=== PATIENT | male | born 1970 | race Caucasian/White ===

== ENCOUNTER 2016-10-06 08:14 | Inpatient (IN) | payer BC, OTHER ==
[~2016-10-06] VITALS: Ht 182.9 cm; Wt 95.3 kg
[2016-10-06] VITALS (30 sets, daily range): BP systolic 102–145; RESP 8–22; TEMP 97.3–98.5
[2016-10-06] MEDS ORDERED: ASPIRIN 81 MG CHEW TAB ONE ×2 (08:16→08:17)
[2016-10-06] MEDS ORDERED: MORPHINE 2 MG/ML SYR ONE (08:30)
[2016-10-06] MEDS ORDERED: MORPHINE 2 MG/ML SYR IV PRN (10:20)
[2016-10-06] MEDS ORDERED: LIDOCAINE 2% 20 ML SUBQ ONE (10:20)
[2016-10-06] MEDS ORDERED: TEMAZEPAM 15 MG CAP PO PRN (10:20)
[2016-10-06] MEDS ORDERED: DEXTROSE 5% SALINE 0.45% 1,000 ML IV SCH (10:20)
[2016-10-06] MEDS ORDERED: MORPHINE 2 MG/ML SYR IV ONE (10:20)
[2016-10-06] MEDS ORDERED: KCL CR 20 MEQ TAB PO ONE (10:20)
[2016-10-06] MEDS ORDERED: OXYCODONE/APAP 5/325 TAB PO PRN (10:20)
[2016-10-06] MEDS ORDERED: LORAZEPAM 0.5 MG TAB PO PRN (10:20)
[2016-10-06] MEDS ORDERED: SALINE FLUSH 10 ML FLUSH PRN (10:20)
[2016-10-06] MEDS ORDERED: MIDAZOLAM 2 MG/2 ML INJ IV PRN (10:20)
[2016-10-06] MEDS ORDERED: NITROGLYCERIN 50 MG/250 ML 250 ML IV PRN (10:20)
[2016-10-06] MEDS ORDERED: DOCUSATE SOD 100 MG CAP PO PRN (10:20)
[2016-10-06] MEDS ORDERED: ATROPINE 1 MG/10 ML SYRINGE IV PRN (10:20)
[2016-10-06] MEDS ORDERED: PROMETHAZINE 25 MG/ML VIAL IV PRN (10:20)
[2016-10-06] MEDS ORDERED: MIDAZOLAM 2 MG/2 ML INJ IV ONE (10:20)
[2016-10-06] MEDS ORDERED: NITROGLYCERIN SL 0.4 MG TAB SL PRN (10:20)
[2016-10-06] MEDS ORDERED: Atorvastatin 40 MG TAB ONE (11:22)
[2016-10-06] MEDS ORDERED: NITROGLYCERIN/D5W 250 ML IV ONE (11:23)
[2016-10-06] MEDS ORDERED: MISSING DOSE XX ONE (11:35)
[2016-10-06] MEDS ORDERED: NITROGLYCERIN 0.3 MG/HR PATCH TRANSDERM STA (12:21)
[2016-10-06] MEDS: ONDANSETRON 4 MG VIAL IV PRN ×2 (12:45→19:24)
[2016-10-06] MEDS ORDERED: MEPERIDINE 25 MG/ML ONE (14:46)
[2016-10-06] MEDS ORDERED: MIDAZOLAM 2 MG/2 ML INJ ONE (14:46)
[2016-10-06] MEDS ORDERED: FENTANYL 100 MCG/2 ML AMP ONE (14:46)
[2016-10-06] MEDS ORDERED: MORPHINE 10 MG VIAL ONE (14:46)
[2016-10-06] MEDS ORDERED: TICAGRELOR 90 MG TAB ONE (14:48)
[2016-10-06] MEDS ORDERED: hePARIN 1,000 UNITS/ML (PORCINE) 10 ML ONE (14:48)
[2016-10-06] MEDS ORDERED: ATROPINE 1% OP SOLN ONE (14:48)
[2016-10-06] MEDS ORDERED: LIDOCAINE 2% 20 ML ONE (14:48)
[2016-10-06] MEDS ORDERED: ALU/MAG/SIM 30 ML UDC PO PRN (15:35)
[2016-10-06] MEDS ORDERED: ALU/MAG/SIM 30 ML UDC ONE (15:35)
[2016-10-06] MEDS ORDERED: FAMOTIDINE 20 MG INJ IV ONE (15:35)
[2016-10-06] MEDS: SALINE FLUSH 10 ML FLUSH SCH (19:25)
[2016-10-06] MEDS: Atorvastatin 40 MG TAB PO SCH (20:00)
[2016-10-06] MEDS: TICAGRELOR 90 MG TAB PO SCH (20:00)
[2016-10-06] MEDS: FAMOTIDINE 20 MG TAB PO SCH (20:34)
[2016-10-07] VITALS (16 sets, daily range): BP systolic 113–132; RESP 15–21; TEMP 97.8–98.5; BMI 28.5
[2016-10-07] MEDS: SODIUM CHLORIDE 0.9% FLUSH BAG 500 ML IV SCH (05:06)
[2016-10-07] MEDS: SALINE FLUSH 10 ML FLUSH SCH ×2 (09:20→20:42)
[2016-10-07] MEDS: FAMOTIDINE 20 MG TAB PO SCH ×2 (09:21→20:41)
[2016-10-07] MEDS: ASPIRIN 81 MG CHEW TAB PO SCH (09:23)
[2016-10-07] MEDS: TICAGRELOR 90 MG TAB PO SCH ×2 (09:24→20:41)
[2016-10-07] MEDS: NITROGLYCERIN 0.2 MG/HR PATCH TRANSDERM SCH (09:24)
[2016-10-07] MEDS: ACETAMINOPHEN 325 MG TAB PO PRN ×2 (12:19→21:49)
[2016-10-07] MEDS: TRAMADOL 50 MG TAB PO PRN (17:33)
[2016-10-07] MEDS: Atorvastatin 40 MG TAB PO SCH (20:41)
[2016-10-07] MEDS: ONDANSETRON 4 MG VIAL IV PRN (21:49)
[2016-10-08] MEDS: SODIUM CHLORIDE 0.9% FLUSH BAG 500 ML IV SCH (05:03)
[2016-10-08 07:23] VITALS: BP_SYST 116; RESP 18; TEMP 98.4
[2016-10-08] MEDS: ASPIRIN 81 MG CHEW TAB PO SCH (08:13)
[2016-10-08] MEDS: TICAGRELOR 90 MG TAB PO SCH (08:13)
[2016-10-08] MEDS: FAMOTIDINE 20 MG TAB PO SCH (08:13)
[2016-10-08] MEDS: SALINE FLUSH 10 ML FLUSH SCH (08:14)
[2016-10-08] MEDS: NITROGLYCERIN 0.2 MG/HR PATCH TRANSDERM SCH (08:14)
[2016-10-08] MEDS ORDERED: KCL CR 20 MEQ TAB PO ONE (09:55)
[2016-10-08 11:30] VITALS: BP_SYST 140; RESP 18; TEMP 98.1
[2016-10-08] MEDS ORDERED: METOPROLOL XL 25 MG TAB PO SCH (11:35)
[2016-10-08] MEDS: TRAMADOL 50 MG TAB PO PRN (11:55)
[2016-10-08 12:40] VITALS: BP_SYST 140; RESP 18; TEMP 98.1
== END 2016-10-08 12:14 | disposition home or self-care (01) | DRG 247 ==
LOC: ENRESERVDT → ENRESERVTM → ER 08:14 → ENPENDDIS 10:16 → EMR 10:16 → CCU 10:29 → PCU 10-07 11:15
PROVIDERS: ADMIT Internal Medicine Cardiovascular Disease; ATTEND Internal Medicine Cardiovascular Disease
PROC: 4A023N7 Measurement of Cardiac Sampling and Pressure, Left Heart, Percutaneous Approach (ICD-10-PCS; principal; 2016-10-06)
PROC: 027035Z Dilation of Coronary Artery, One Artery with Two Drug-eluting Intraluminal Devices, Percutaneous Approach (ICD-10-PCS; 2016-10-06)
PROC: B2111ZZ Fluoroscopy of Multiple Coronary Arteries using Low Osmolar Contrast (ICD-10-PCS; 2016-10-06)
PROC: B2151ZZ Fluoroscopy of Left Heart using Low Osmolar Contrast (ICD-10-PCS; 2016-10-06)
CPT/HCPCS: 36415; 71010; 80048; 80053; 80061; 82550; 82553; 83735; 83880; 84439; 84443; 84484; 85025; 85347; 85610; 85730; 93005; 93458; 94799; 96374; 96375